=== PATIENT | male | born 1955 ===

== ENCOUNTER 2018-11-13 07:48 | Outpatient (CLI) | payer OTHER | END 2018-11-13 07:49 | disposition home or self-care (01) | LOC: TOM 07:48 | DX: R07.0 Pain in throat (principal) ==

== ENCOUNTER 2019-03-30 07:57 | Outpatient (CLI) | payer OTHER | END 2019-03-30 07:58 | disposition home or self-care (01) | LOC: RAD 07:57 | DX: M79.672 Pain in left foot (principal) ==

== ENCOUNTER → 2020-02-25 | Outpatient (CLI) | payer OTHER | END | disposition home or self-care (01) | LOC: SONOGRAMA 09:52 | PROVIDERS: ATTEND General Practice | DX: M54.2 Cervicalgia (principal); E78.49 Other hyperlipidemia; R31.29 Other microscopic hematuria ==